=== PATIENT | female | born 1970 | race Caucasian/White ===

== ENCOUNTER 2016-05-24 05:20 | Inpatient (IN) | payer OTHER ==
[2016-05-20 13:01] VITALS: BMI 32.3
[~2016-05-24 05:20] MED LIST: CLINDAMYCIN 600MG PREMIX IVPB 50 ML IVPB SCH; LACTATED RINGERS SOLUTION 1,000 ML IV SCH
[2016-05-24 07:06] VITALS: BP 147/95; PULSE 96; TEMP 98.1
== END 2016-05-24 08:30 | disposition home or self-care (01) | DRG 532 ==
LOC: JSAMEDAYSX 05:20
PROVIDERS: ADMIT Obstetrics & Gynecology; ATTEND Obstetrics & Gynecology
DX: D25.9 Leiomyoma of uterus, unspecified (principal); R10.2 Pelvic and perineal pain; Z53.8 Procedure and treatment not carried out for other reasons
CPT/HCPCS: 84703; 86850; 86900; 86901

== ENCOUNTER → 2016-08-24 | Day surgery (SDC) | payer OTHER ==
--- NOTE | 2016-08-25 15:56 | PATH ---
Surgical Pathology Report Patient Name: RE BAUTISTA [facility]. Rec. #: [id number] /Age/Gender: 1970 (Age: 45) / F Account: [id number] Location: Taken: 08/24/2016 Received: 08/24/2016 Reported: 08/25/2016 Physicians: Sp Rivera M.D. Specimen(s) Received LEFT BREAST CORE BIOPSY 6:00, 3CM FN Clinical History Ultrasound findings: Probably benign rule out fibroadenoma Final Diagnosis BREAST, LEFT, 6:00, 3 CM FN, CORE BIOPSY: FIBROADENOMA. Electronically Signed Keyonna Leonard M.D. Gross Description Received in formalin labeled "left breast biopsy 6:00, 3 cmfn," is a 1.5 x 1.2 x 0.3 cm aggregate of multiple ledesma-yellow, irregular to cylindrical portions of fibroadipose tissue. The formalin is filtered and the specimen is entirely submitted in one cassette. Time to formalin fixation: 2 minutes Total formalin fixation time: Approximately 6 hours. /08/24/2016 [facility]/08/24/2016
== END | disposition home or self-care (01) ==
LOC: FRADUS-SUR 11:38
PROVIDERS: ATTEND Obstetrics & Gynecology
PROC: 0HBU3ZX Excision of Left Breast, Percutaneous Approach, Diagnostic (ICD-10-PCS; principal; 2016-08-24)
DX: D24.2 Benign neoplasm of left breast (principal); N63 Unspecified lump in breast
CPT/HCPCS: 19083; 87899; 88305-TC; A4648; G0206-TC